=== PATIENT | male | born 1960 | race Caucasian/White ===

== ENCOUNTER 2025-07-25 09:04 | Observation (INO) | payer OTHER ==
[~2025-07-25] VITALS: Ht 172.7 cm; Wt 115.2 kg
[2025-07-25 10:07] LABS: BASOPHILS ABSOLUTE AUTO 0.08 K/mm3 (0.00-0.23); BASOPHILS PERCENT AUTO 1 % (0-2); EOSINOPHILS ABSOLUTE AUTO 0.23 K/mm3 (0.00-0.68); EOSINOPHILS PERCENT AUTO 3 % (0-6); Hematocrit 31.5 % (37.0-53.0); Hemoglobin 9.9 g/dL (13.5-17.5); IMMATURE GRAN ABSOLUTE AUTO 0.04 K/mm3 (0.00-0.10); IMMATURE GRAN PERCENT AUTO 1 % (0-1); LYMPHOCYTES ABSOLUTE AUTO 0.81 K/mm3 (0.84-5.20); LYMPHOCYTES PERCENT AUTO 10 % (21-46); MONOCYTES ABSOLUTE AUTO 1.08 K/mm3 (0.16-1.47); MONOCYTES PERCENT AUTO 13 % (4-13); Mean Corpuscular HGB Conc 31.4 g/dL (31.5-36.5); Mean Corpuscular Volume 78 fL (80-100); NEUTROPHILS ABSOLUTE AUTO 6.12 K/mm3 (1.96-9.15); NEUTROPHILS PERCENT AUTO 73 % (41-73); NRBC ABSOLUTE 0.03 K/mm3 (0.00-0.02); NRBC Auto 0.4 /100 WBC (0.0-0.2); Platelet Count 210 K/mm3 (150-400); RDW Coefficient Variation 16.9 % (11.7-14.2); RDW Standard Deviation 47.2 fL (35.1-46.3)
[2025-07-25 10:42] LABS: Alanine Aminotransfer (ALT/SGP 17.0 U/L (12-78); Albumin, Blood 3.3 g/dL (3.4-5.0); Albumin/Globulin Ratio 0.9 (0.8-1.8); Anion Gap 9.0 mmol/L (3-11); Aspartate Aminotrans (AST/SGOT 26.0 U/L (12-37); Bilirubin, Total 0.9 mg/dL (0.1-1.0); Blood Urea Nitrogen 9.0 mg/dL (8-24); CO2, Blood 25.0 mmol/L (21-32); Calcium, Blood 8.2 mg/dL (8.5-10.1); Chloride, Blood 103.0 mmol/L (98-108); Creatinine, Blood 0.97 mg/dL (0.60-1.20); Globulin, Blood 3.8 g/dL (2.2-4.0); Glucose, Blood 143.0 mg/dL (70-99); Potassium, Blood 3.4 mmol/L (3.5-5.5); Sodium, Blood 134.0 mmol/L (136-145); Total Protein, Blood 7.1 g/dL (6.4-8.2)
[2025-07-25] MEDS ORDERED: Furosemide 10 MG / ML 2ML Vial IV ONE (11:35)
[2025-07-25] MEDS ORDERED: Morphine Sulfate 4 MG/1 ML Injection IV ONE (11:35)
[2025-07-25] MEDS ORDERED: Ondansetron HCl 2 MG / ML 2ML Vial IV ONE (11:35)
[2025-07-25] MEDS ORDERED: ALPRAZOLAM0.5 M1 PO (12:54)
[2025-07-25] MEDS ORDERED: HYDROCODONE-AC1 EAC7 PO (12:54)
[2025-07-25] MEDS ORDERED: FEBUXOSTAT80 MG PO (12:54)
[2025-07-25] MEDS ORDERED: ISOSORBIDE MONO30 MG PO (12:55)
[2025-07-25] MEDS ORDERED: FLU VACC TS2025-26(6MOS UP)/PF 45 MCG/0.5 ML SYRINGE IM SCH (12:55)
[2025-07-25] MEDS ORDERED: Nitrostat0.3 MG SL (12:55)
[2025-07-25] MEDS ORDERED: FUROSEMIDE20 MG PO (12:56)
[2025-07-25] MEDS ORDERED: JANTOVEN2 MG PO (12:56)
[2025-07-25] MEDS ORDERED: REMERON1510 PO (12:56)
[2025-07-25] MEDS ORDERED: CARVEDILOL3.125 MG PO (12:56)
[2025-07-25] MEDS ORDERED: SYNTHROID150 MC1 PO (12:57)
[2025-07-25] MEDS ORDERED: AMLODIPINE BESYL5 MG PO (12:57)
[2025-07-25] MEDS ORDERED: PLAVIX75 MG PO (12:57)
[2025-07-25 15:36] VITALS: BP 132/72
[2025-07-25] MEDS ORDERED: HYDROcodone 10-APAP 325 TAB PO ONE (16:00)
[2025-07-25] MEDS ORDERED: HYDROcodone 10-APAP 325 TAB PO PRN (16:00)
[2025-07-25] MEDS ORDERED: Magnesium Sulf 2 GM/Water 50ML 50 ML IV ONE (16:20)
[2025-07-25] MEDS ORDERED: HYDROmorphone HCl/Pf 1MG SYR IV PRN (16:35)
[2025-07-25 16:52] LABS: Prothrombin Time Results 32.6 Sec (9.7-11.5)
[2025-07-25 18:03] LABS: Ferritin, Serum 30.0 ng/mL (26-388); Total Iron Binding Capacity 461.0 ug/dL (250-450)
--- NOTE | 2025-07-25 18:29 | NUR ---
PT ARRIVED IN THE ROOM AT APPROX 1530 PT ABLE TO STAND AND AMBULATE TO BED AND BATHROOM TO CHANGE TO GOWN. PT IS ALERT AND ORIENTED X4, PLEASANT AND COOPERAITVE WITH CARES. VITALS HRR SR 60'S PT RENAE SAICD IN PLACE, SBP 140'S, SATS ABOVE 95% ON 2L OF O2, AFEBRILE. PT IS ON DIURETICS. 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 MED REC COMPLETED AND RESTARTED. DIET RESUMED. TROPONIN ELEVATED AT 1126, REPEAT ONE AT 1800. PT HAS BEEN INDEPENDENT IN THE ROOM. MEDICATED WITH NORCO AND IV DILAUDID FOIR BACK PAIN DUE TO SPINAL FX, PT AWATING FOR SURGERY. NO OTHER ISSUES AT THIS TIME. PT HAS BEEN CALLING APPROPRIATELY.WILL REPORT TO ONCOMING SHIFT
[2025-07-25 19:47] VITALS: BP 146/81
[2025-07-25] MEDS ORDERED: Isosorbide Mononitrate 60 MG TABCR PO SCH (21:00)
[2025-07-26 00:52] VITALS: BP 129/78
[2025-07-26 04:12] VITALS: BP 135/74
[2025-07-26 04:40] LABS: BASOPHILS ABSOLUTE AUTO 0.06 K/mm3 (0.00-0.23); BASOPHILS PERCENT AUTO 1 % (0-2); EOSINOPHILS ABSOLUTE AUTO 0.36 K/mm3 (0.00-0.68); EOSINOPHILS PERCENT AUTO 6 % (0-6); Hematocrit 32.6 % (37.0-53.0); Hemoglobin 9.8 g/dL (13.5-17.5); IMMATURE GRAN ABSOLUTE AUTO 0.04 K/mm3 (0.00-0.10); IMMATURE GRAN PERCENT AUTO 1 % (0-1); LYMPHOCYTES ABSOLUTE AUTO 0.80 K/mm3 (0.84-5.20); LYMPHOCYTES PERCENT AUTO 13 % (21-46); MONOCYTES ABSOLUTE AUTO 0.74 K/mm3 (0.16-1.47); MONOCYTES PERCENT AUTO 12 % (4-13); Mean Corpuscular HGB Conc 30.1 g/dL (31.5-36.5); Mean Corpuscular Volume 82 fL (80-100); NEUTROPHILS ABSOLUTE AUTO 3.98 K/mm3 (1.96-9.15); NEUTROPHILS PERCENT AUTO 67 % (41-73); NRBC ABSOLUTE 0.03 K/mm3 (0.00-0.02); NRBC Auto 0.5 /100 WBC (0.0-0.2); Platelet Count 188 K/mm3 (150-400); RDW Coefficient Variation 17.0 % (11.7-14.2); RDW Standard Deviation 49.1 fL (35.1-46.3)
[2025-07-26 05:57] LABS: Alanine Aminotransfer (ALT/SGP 16.0 U/L (12-78); Albumin, Blood 3.1 g/dL (3.4-5.0); Albumin/Globulin Ratio 0.9 (0.8-1.8); Anion Gap 7.0 mmol/L (3-11); Aspartate Aminotrans (AST/SGOT 28.0 U/L (12-37); Bilirubin, Total 0.7 mg/dL (0.1-1.0); Blood Urea Nitrogen 11.0 mg/dL (8-24); CO2, Blood 30.0 mmol/L (21-32); Calcium, Blood 8.1 mg/dL (8.5-10.1); Chloride, Blood 101.0 mmol/L (98-108); Creatinine, Blood 0.27 mg/dL (0.60-1.20); Globulin, Blood 3.6 g/dL (2.2-4.0); Glucose, Blood 121.0 mg/dL (70-99); Magnesium, Blood 1.7 mg/dL (1.6-2.4); Potassium, Blood 3.5 mmol/L (3.5-5.5); Sodium, Blood 134.0 mmol/L (136-145); Total Protein, Blood 6.7 g/dL (6.4-8.2)
--- NOTE | 2025-07-26 06:38 | NUR ---
PT STABLE THROUGHOUT SHIFT. PT AOX4, INDEPENDENT/SBA. PT DID REQUIRE INCREASE IN O2 FROM 2L NC TO 4L NC TO MAINTAIN SATS ABOVE 92%. NO C/O CHEST PAIN OR DYSPNEA. VITAL SIGNS WNL OTHERWISE. PT DOES HAVE A MILDLY PRODUCTIVE COUGH. PT HAS CHRONIC BACK PAIN AND HAS BEEN MEDICATED FOR THAT X2 SEE JAN.
[2025-07-26] MEDS ORDERED: Mag Sulfate 1 GM/D5% 100ML 100 ML IV STA (06:56)
[2025-07-26 08:48] LABS: Prothrombin Time Results 25.1 Sec (9.7-11.5)
[2025-07-26] MEDS ORDERED: FEBUXOSTAT 80 MG TAB PO SCH (09:00)
[2025-07-26] MEDS ORDERED: Levothyroxine Sodium 0.15 MG Tab PO SCH (09:00)
[2025-07-26] MEDS ORDERED: Enoxaparin 40 MG/0.4 ML SYR SC SCH (09:00)
[2025-07-26 11:21] VITALS: BP 120/72
[2025-07-26 16:00] VITALS: BP 144/77
[2025-07-26] MEDS ORDERED: HYDROmorphone HCl/Pf 1MG SYR IV PRN (16:35)
[2025-07-26] MEDS ORDERED: Furosemide 10 MG / ML 2ML Vial IV SCH (17:00)
--- NOTE | 2025-07-26 18:17 | NUR ---
SHIFT SUMMARY: PT A&OX4. FOLLOWS COMMANDS AND MAKES NEEDS KNOWN TO STAFF. PT GOT UP TO THE BATHROOM A COUPLE TIMES DURING SHIFT. HAD A GOOD AMOUNT OF URINARY OUTPUT AFTER DUIRETICS. TOLERATED PO INTAKE WELL. DENIED ANY COMPLAINTS OF CP, PRESSURE, TIGHTNESS OR SOB. PT TITRATED OFF OF O2 TODAY BESIDES WHILE SLEEPING. PLAN FOR SLEEP STUDY TONIGHT. PT COMPLAINED OF CHRONIC BACK PAIN THROUGHOUT SHIFT. MEDICATED PER EMAR. PLAN FOR DC IN THE MORNING. NO OTHER SIGNIFICANT EVENTS HAPPENED DURING THIS SHIFT. WILL CONTINUE TO CARE FOR PT TILL END OF SHIFT.
[2025-07-26 20:30] VITALS: BP 132/80
[2025-07-26 23:50] VITALS: BP 139/73
[2025-07-27 05:11] VITALS: BP 128/77
--- NOTE | 2025-07-27 06:32 | NUR ---
SHIFT SUMMARY PATIENT ALERT AND ORIENTED X4. MEDICATED PER EMAR FOR PAIN. RT COMPLETED SLEEP OXYMETRY STUDY. VITAL SIGNS STABLE. NO ACUTE ISSUES NOTED OVRNIGHT. WILL CONTINUE TO MONITOR. CALL LIGHT WITHIN REACH.
[2025-07-27 06:39] LABS: BASOPHILS ABSOLUTE AUTO 0.06 K/mm3 (0.00-0.23); BASOPHILS PERCENT AUTO 1 % (0-2); EOSINOPHILS ABSOLUTE AUTO 0.37 K/mm3 (0.00-0.68); EOSINOPHILS PERCENT AUTO 7 % (0-6); Hematocrit 32.7 % (37.0-53.0); Hemoglobin 9.6 g/dL (13.5-17.5); IMMATURE GRAN ABSOLUTE AUTO 0.02 K/mm3 (0.00-0.10); IMMATURE GRAN PERCENT AUTO 0 % (0-1); LYMPHOCYTES ABSOLUTE AUTO 1.38 K/mm3 (0.84-5.20); LYMPHOCYTES PERCENT AUTO 24 % (21-46); MONOCYTES ABSOLUTE AUTO 0.89 K/mm3 (0.16-1.47); MONOCYTES PERCENT AUTO 16 % (4-13); Mean Corpuscular HGB Conc 29.4 g/dL (31.5-36.5); Mean Corpuscular Volume 83 fL (80-100); NEUTROPHILS ABSOLUTE AUTO 2.93 K/mm3 (1.96-9.15); NEUTROPHILS PERCENT AUTO 52 % (41-73); NRBC ABSOLUTE 0.05 K/mm3 (0.00-0.02); NRBC Auto 0.9 /100 WBC (0.0-0.2); Platelet Count 182 K/mm3 (150-400); RDW Coefficient Variation 16.6 % (11.7-14.2); RDW Standard Deviation 49.9 fL (35.1-46.3)
[2025-07-27 07:11] LABS: Prothrombin Time Results 18.1 Sec (9.7-11.5)
[2025-07-27 07:15] LABS: Alanine Aminotransfer (ALT/SGP 16.0 U/L (12-78); Albumin, Blood 2.9 g/dL (3.4-5.0); Albumin/Globulin Ratio 0.8 (0.8-1.8); Anion Gap 7.0 mmol/L (3-11); Aspartate Aminotrans (AST/SGOT 28.0 U/L (12-37); Bilirubin, Total 0.5 mg/dL (0.1-1.0); Blood Urea Nitrogen 16.0 mg/dL (8-24); CO2, Blood 29.0 mmol/L (21-32); Calcium, Blood 8.5 mg/dL (8.5-10.1); Chloride, Blood 101.0 mmol/L (98-108); Creatinine, Blood 0.8 mg/dL (0.60-1.20); Globulin, Blood 3.7 g/dL (2.2-4.0); Glucose, Blood 114.0 mg/dL (70-99); Magnesium, Blood 1.8 mg/dL (1.6-2.4); Potassium, Blood 3.5 mmol/L (3.5-5.5); Sodium, Blood 133.0 mmol/L (136-145); Total Protein, Blood 6.6 g/dL (6.4-8.2)
[2025-07-27] MEDS ORDERED: Mag Sulfate 1 GM/D5% 100ML 100 ML IV STA (07:36)
[2025-07-27 07:43] VITALS: BP 143/78
[2025-07-27] MEDS ORDERED: TORSE20 PO (08:14)
[2025-07-27] MEDS ORDERED: POTCHL20ER PO (08:14)
--- NOTE | 2025-07-27 09:24 | NUR ---
DISCHARGE NOTE THIS RN ASSUMED CARE AT APPROX 0715. PATIENT ALERT AND ORIENTED X4. COMMUNICATING NEEDS EFFECTIVELY. VSS. TOLERATING ROOM AIR WHILE AWAKE - SATs >90%. OVERNIGHT SLEEP STUDY PERFORMED - DOES REQUIRE 4L VIA NC W/ SLEEP. TELEMETRY SHOWING SINUS PRIOR TO REMOVAL. BP STABLE - DENIES CHEST PAIN, PRESSURE. SOB IMPROVED. INDEPENDENT IN ROOM. DC ORDER IN PLACE BY MD FOLLOWING IV MAGNESIUM REPLACEMENT. INFUSION COMPLETE, IV REMOVED. WRITTEN AND VERBAL EDUCATION PROVIDED - PATIENT STATES UNDERSTANDING. PERSONAL BELONGINGS W/ PATIENT. PATIENT TRANSFERRED OFF UNIT VIA WC.
== END 2025-07-27 10:34 | disposition home or self-care (01) ==
LOC: ER 09:04 → PCU 09:05
PROVIDERS: Emergency Medicine; ADMIT Hospitalist
DX: J96.01 Acute respiratory failure with hypoxia (principal); I11.0 Hypertensive heart disease with heart failure; I50.43 Acute on chronic combined systolic (congestive) and diastolic (congestive) heart failure; R05.9 Cough, unspecified; I25.119 Atherosclerotic heart disease of native coronary artery with unspecified angina pectoris; I25.2 Old myocardial infarction; R79.89 Other specified abnormal findings of blood chemistry; D50.9 Iron deficiency anemia, unspecified; E03.9 Hypothyroidism, unspecified; E78.5 Hyperlipidemia, unspecified; M10.9 Gout, unspecified; F17.220 Nicotine dependence, chewing tobacco, uncomplicated; Z66 Do not resuscitate; Z79.01 Long term (current) use of anticoagulants; Z79.02 Long term (current) use of antithrombotics/antiplatelets; Z79.890 Hormone replacement therapy; Z79.899 Other long term (current) drug therapy; Z95.5 Presence of coronary angioplasty implant and graft; Z95.810 Presence of automatic (implantable) cardiac defibrillator
CPT/HCPCS: 36415; 71046; 80053; 82728; 83540; 83550; 83735; 83880; 84484; 85025; 85610; 93005; 93010; 94762; 96365; 96374; 96375; 96376; 99285-25; A9270; C8929; G0378; J1171; J1938; J2270; J2405; J3475; Q9957